=== PATIENT | female | born 1960 | race Caucasian/White ===

== ENCOUNTER 2024-08-19 20:29 | Emergency (ER) | payer OTHER | END 2024-08-19 23:18 | disposition home or self-care (01) | LOC: FB.ED 20:29 | DX: S06.0X0A Concussion without loss of consciousness, initial encounter (principal); W00.0XXA Fall on same level due to ice and snow, initial encounter; Y93.21 Activity, ice skating | CPT/HCPCS: 70450; 99284 ==